=== PATIENT | female | born 1985 | race Caucasian/White ===

== ENCOUNTER 2023-06-02 03:59 | Day surgery (SDC) | payer OTHER, SELFPAY ==
[2023-05-22 16:04] VITALS: BMI 21.1
[2023-06-02 08:50] VITALS: BP 118/65; PULSE 69; RESP 16; TEMP 36.3; O2SAT 100
[2023-06-02] MEDS: LACTATED RINGERS 1,000 ML 150 ML IV CONT (08:58)
[2023-06-02] MEDS: DEXTROSE 50% 25 GM/50 ML SYRINGE IV PUSH (09:04)
--- NOTE | 2023-06-02 09:05 | SUR.PREOP ---
Patient's blood sugar is 60. Patient is diaphoretic and states she feels dizzy like she is going to pass out. Orders received to give 1/2 amp of Dextrose 50% now.
--- NOTE | 2023-06-02 09:18 | SUR.PREOP ---
Blood sugar recheck after receiving 12.5gm of Dextrose 50% was 141. Patient states she feels much better.
[2023-06-02 09:19] LABS: Glucose Point of Care 60 mg/dl (65-105)
[2023-06-02 09:19] LABS: Glucose Point of Care 141 mg/dl (65-105)
--- NOTE | 2023-06-02 09:52 | P.HP_ITS ---
History of Present Illness History of Present Illness Consent: Risks, benefits, and alternatives have been discussed and questions answered. Patient agrees to proceed with procedure. Chief complaint: family hx colon polyps Narrative: Mel Aldridge is a 38 year old female Presents for screening colonoscopy. Patient's current weight appetite and bowel movements are normal. Patient denies abdominal pain. She has had no bleeding. Family history is significant her mother had colon polyps grandmother and grandfather both have had colon cancer. Patient presents today for screening colonoscopy. Review of Systems Review of Systems: Review of systems noncontributory. FORMERLY [facility], [facility] Past Medical History Medical History Anxiety Myalgia Obsessive compulsive disorder Palpitations TMJ (temporomandibular joint disorder) Surgical History Surgical History History of tonsillectomy Family History Family History Mother Colon polyp Afib Grandparent Carcinoma of colon Grandparent Carcinoma of colon Social History Social History Smoking status: Former smoker Tobacco type: cigarettes Substance use type: does not use Living arrangements: with family Spiritual care concerns: No Meds Home Medications and Allergies Home Medications Medication Instructions Recorded Confirmed Type clonazepam 1 mg tablet 1 mg PO BID PRN Anxiety 12/26/22 05/22/23 History fluvoxamine 50 mg tablet 50 mg PO DAILY 12/26/22 05/22/23 History cyclobenzaprine 10 mg tablet 10 mg PO .prn 03/22/23 05/22/23 History naproxen 500 mg tablet 500 mg PO BID PRN Pain 03/22/23 05/22/23 History linaclotide 145 mcg capsule 145 mcg PO DAILY 05/22/23 05/22/23 History (Linzess) Allergies Allergy/AdvReac Type Severity Reaction Status Date / Time Penicillins Allergy Mild Rash Verified 06/02/23 08:47 Sulfa (Sulfonamide Allergy Mild Unknown Verified 06/02/23 08:47 Antibiotics) Cephalosporins Allergy Rash Verified 06/02/23 08:47 lamotrigine [From Lamictal] Allergy Other Verified 06/02/23 08:47 Vital Signs Vital Signs - 24 hr 06/02/23 08:50 Temperature 97.3 F L Pulse Rate 69 Respiratory Rate 16 Blood Pressure 118/65 Pulse Oximetry 100 Oxygen Delivery Room Air Exam Narrative: Physical exam reveals patient to be alert. Vital signs stable. HEENT exam is unremarkable. Patient is anicteric. Lungs are clear to auscultation and percussion. Heart is without murmur or extra sounds. Abdomen bowel sounds are present soft nontender with no organomegaly. Digital external rectal exam normal. Assessment and Plan Assessment and plan (1) Family history of colonic polyps: Code(s): Z83.71 - Family history of colonic polyps Status: Acute Assessment and Plan: Patient's mother has had colon polyps. Two grandparents have had colon cancer. Plan for surveillance colonoscopy now and consider this at 5 year intervals in the future.
--- NOTE | 2023-06-02 10:02 | P.PNAN_ITS ---
Anes - Initial Pre Proc Eval Procedure: Operation Date: 06/02/23 09:30 Proposed Procedures p Screening Colonoscopy - Deniz Esteves MD Date/Time: 06/02/23 10:02 Surgeon: eDniz Esteves MD Pre Op Diagnosis: family hx colon polyps Patient Data Age: 38 Gender: F Height: 1.75 m Weight: 63.5 kg Last Vital Signs Temp 97.3 F L 06/02/23 08:50 Pulse 69 06/02/23 08:50 Resp 16 06/02/23 08:50 BP 118/65 06/02/23 08:50 Pulse Ox 100 06/02/23 08:50 O2 Del Method Room Air 06/02/23 08:50 Allergies Allergy/AdvReac Type Severity Reaction Status Date / Time Penicillins Allergy Mild Rash Verified 06/02/23 08:47 Sulfa (Sulfonamide Allergy Mild Unknown Verified 06/02/23 08:47 Antibiotics) Cephalosporins Allergy Rash Verified 06/02/23 08:47 lamotrigine [From Lamictal] Allergy Other Verified 06/02/23 08:47 Home Medications Medication Instructions Recorded Confirmed Type clonazepam 1 mg tablet 1 mg PO BID PRN Anxiety 12/26/22 05/22/23 History fluvoxamine 50 mg tablet 50 mg PO DAILY 12/26/22 05/22/23 History cyclobenzaprine 10 mg tablet 10 mg PO .prn 03/22/23 05/22/23 History naproxen 500 mg tablet 500 mg PO BID PRN Pain 03/22/23 05/22/23 History linaclotide 145 mcg capsule 145 mcg PO DAILY 05/22/23 05/22/23 History (Linzess) Laboratory Tests 06/02/23 06/02/23 08:58 09:17 POC Capillary Glucose 60 L mg/dl 141 H mg/dl (65-105) (65-105) Patient hx anesthesia problems: none Family hx anesthesia problems: none Results Review: All pre-operative results and documents have been reviewed as part of the pre- operative evaluation. [facility] Past Medical History Medical History Anxiety Myalgia Obsessive compulsive disorder Palpitations TMJ (temporomandibular joint disorder) Surgical History Surgical History History of tonsillectomy Family History Family History Mother Colon polyp Afib Grandparent Carcinoma of colon Grandparent Carcinoma of colon Social History Social History Smoking status: Former smoker Tobacco type: cigarettes Substance use type: does not use Living arrangements: with family Spiritual care concerns: No Anes - Eval Final PreProcedure Day of Procedure 06/02/23 10:02 Patient weight: normal Heart: regular rate and rhythm Lungs: clear to auscultation Airway: Mallampati scale class II Neurological: alert and oriented Last oral intake: >/= 8 hours ASA classification: II Emergent: no Anesthetic plan: proceed Anesthesia type and monitoring: general GIVS and standard monitoring Results Review: All pre-operative results and documents have been reviewed as part of the pre- operative evaluation. Informed Consent: The patient's anesthetic plan and its attendant risks and benefits were discussed with the patient/family/POA. Questions were solicited and answers provided to the satisfaction of the patient/family/POA.
[2023-06-02 10:19] VITALS: BP 81/48; PULSE 75; RESP 16; O2SAT 100
[2023-06-02 10:29] VITALS: BP 81/46; PULSE 71; RESP 16; O2SAT 100
[2023-06-02 10:39] VITALS: BP 96/61; PULSE 80; RESP 16; O2SAT 100
== END 2023-06-02 10:51 | disposition home or self-care (01) ==
PROVIDERS: PCP Pediatrics; Visit Provider Internal Medicine Gastroenterology
PROC: 0DJD8ZZ Inspection of Lower Intestinal Tract, Via Natural or Artificial Opening Endoscopic (ICD-10-PCS; CPT 45378; principal; 2023-06-02 09:30)
DX: Z12.11 Encounter for screening for malignant neoplasm of colon (principal); K64.8 Other hemorrhoids; Z83.71 Family history of colonic polyps; F41.9 Anxiety disorder, unspecified; F42.8 Other obsessive-compulsive disorder; Z87.891 Personal history of nicotine dependence; Z79.899 Other long term (current) drug therapy
CPT/HCPCS: 45378; 82948; J7120

== ENCOUNTER → 2024-01-18 15:31 | Outpatient (CLI) | payer SELFPAY ==
--- NOTE | ~2024-01-18 | US_ITS ---
EXAMINATION: US venous doppler [facility] DATE: 01/18/2024 16:08 INDICATION: Superficial thrombophlebitis of the left leg TECHNIQUE: Berrios scale images without and with compression and Doppler images of the left lower extrem ity veins were obtained. COMPARISON: None FINDINGS: The left common femoral vein, profunda femoral vein, femoral vein, popliteal vein, peroneal trunk, posterior tibial veins, and greater saphenous vein are patent. IMPRESSION: 1. Patent left lower extremity veins. No evidence of venous thrombosis. Reviewed, dictated and finalized at location [facility] [employer]
== END ==
DX: I80.9 Phlebitis and thrombophlebitis of unspecified site (principal)
CPT/HCPCS: 93971

== ENCOUNTER 2024-10-29 19:22 | Emergency (ER) | payer SELFPAY | END 2024-10-29 22:54 | disposition left against medical advice (07) | LOC: ANHED 22:53 | DX: M54.2 Cervicalgia (principal); M54.50 Low back pain, unspecified | CPT/HCPCS: 99199 ==